=== PATIENT | male | born 1970 | race African-American/Black ===

== ENCOUNTER 2018-01-27 09:49 | Outpatient (RCR) | payer BC ==
[~2018-01-27] VITALS: Ht 190.5 cm; Wt 131.5 kg
== END 2018-02-22 | disposition home or self-care (01) ==
LOC: WCC 09:49
DX: L97.322 Non-pressure chronic ulcer of left ankle with fat layer exposed (principal); T81.31XS Disruption of external operation (surgical) wound, not elsewhere classified, sequela; X58.XXXS Exposure to other specified factors, sequela; Z88.6 Allergy status to analgesic agent
CPT/HCPCS: 11042; 87070; 87181; 87205; G0463; 99204

== ENCOUNTER 2018-02-24 07:50 | Outpatient (RCR) | payer BC ==
[~2018-02-24] VITALS: Ht 190.5 cm; Wt 131.5 kg
[2018-03-13] MEDS ORDERED: Lidocaine 1% MPF 10mg/ml 5ml INJ ONE (12:00)
[2018-03-24] MEDS ORDERED: NKM (11:38)
== END 2018-03-24 | disposition home or self-care (01) ==
LOC: WCC 07:50
DX: L97.322 Non-pressure chronic ulcer of left ankle with fat layer exposed (principal); T81.31XS Disruption of external operation (surgical) wound, not elsewhere classified, sequela; X58.XXXS Exposure to other specified factors, sequela
CPT/HCPCS: 11042; 82962

== ENCOUNTER 2018-03-24 10:46 | Day surgery (SDC) | payer BC, SELFPAY ==
[~2018-03-24] VITALS: Ht 190.5 cm; Wt 133.8 kg
[2018-03-24 11:34] VITALS: BP 136/82
[2018-03-24] MEDS ORDERED: Bacitracin 50000 Units Vial ONE (11:34)
[2018-03-24] MEDS ORDERED: Lidocaine 1% 10mg/ml/Epi 0.005mg/ml 30ml vial INJ ONE (11:34)
[2018-03-24] MEDS ORDERED: NKM (11:38)
--- NOTE | 2018-03-24 12:21 | Pre-Procedure Note/Attestation ---
Pre-Procedure Note/Attestation Complete Prior to Procedure Planned Procedure: left Procedure Narrative: Resection left distal ankle ulcer, surgical preparation of wound bed for placement of stravix and negative pressure wound vac. Attestation I attest that I discussed the nature of the procedure; its benefits; risks and complications; and alternatives (and the risks and benefits of such alternatives ), prior to the procedure, with the patient (or the patient's legal customer account representative). I attest that, if there was a reasonable possibility of needing a blood transfusion, the patient (or the patient's legal customer account representative) was given the [facility] standardized written summary, pursuant to the [place] Blood Safety Act ([place] Health and Safety Code # 1645, as amended). I attest that I re-evaluated the patient just prior to the surgery and that there has been no change in the patient's H&P, except as documented below: KEKE SOMMER Mar 24, 2018 12:21
[2018-03-24] MEDS ORDERED: Lidocaine 1% Plain 30 ml INJ ONE (12:25)
[2018-03-24 14:10] VITALS: BP 129/74
[2018-03-24] MEDS ORDERED: HYDROcodone/Acetamin 7.5/325 tab ORAL ONE (15:00)
--- NOTE | 2018-03-24 16:16 | Brief Operative Note ---
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 ethibond suture in wound base underneath the cicatrical tissue Surgeon: Don Anesthesia: local Specimen: yes Complications: none Condition: stable Fluids: none Estimated Blood Loss: minimal Drains: wound vac Implant(s) used?: Yes - Stravix KEKE SOMMER Mar 24, 2018 16:15
--- NOTE | 2018-03-24 19:30 | Operative Note - Dictated ---
DATE OF OPERATION: 03/24/2018 SURGEON: Sunny Ochoa M.D. PREOPERATIVE DIAGNOSIS: Left distal posterior ankle ulcer. POSTOPERATIVE DIAGNOSIS: Left distal posterior ankle ulcer. OPERATION: 1. Excisional resection of the left distal posterior ankle ulcer bed. 2. Surgical preparation of left distal ankle ulcer bed for placement of a graft. 3. Placement of Stravix, sutured into place. 4. Negative pressure SNAP VAC application. ANESTHESIA: 20 mL of 1% lidocaine with 1:200,000 epinephrine injected. 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 He had a Achilles rupture playing soccer. He underwent repair in July and August 2017 by Orthopedic Surgery. He developed dehiscence of his incision 4-5 weeks later after commencing physical therapy and this has remained open. He had been treated at outpatient wound center, but it was determined that he had this layer of cicatricial tissue that was not allowing skin to heal over and so this needed to be excised down to the tendon with the placement of advanced biologic graft and a negative pressure dressing. The operative plan was devised and agreed upon, and informed consent was obtained and he was scheduled for elective surgery. OPERATIVE PROCEDURE: The patient was seen in the preoperative area and the operative plan was again discussed and agreed upon. Operative markings were made. An IV was placed and he was taken back to the operating room. The patient was placed on the operating table in the prone position and once time-out was performed, his ankle area was injected with 20 mL of 1% lidocaine with 1:200,000 epinephrine. At this point, he had his calf, lower leg, and foot circumferentially prepped and draped in usual sterile fashion. Using combination of a #15 blade, iris scissors, and forceps, the cicatricial tissue was excised. There were several Ethibond sutures present underneath this tissue and these were removed. At this point, attention was turned to get hemostasis. Once this was obtained and the wound bed was explored, there was no more cicatricial tissue and a healthy wound bed at the base. The Stravix was then reconstituted and sutured into place with 4-0 Vicryl sutures. Adaptic was then placed over this followed by negative pressure dressing and the patient's leg was then wrapped with an Derick wrap. There were no leaks in the dressing in negative pressure and the patient was then taken to the recovery room in stable condition. There were no complications. EBL was minimal. The patient tolerated the procedure well. Sunny Ochoa M.D. DR: OSVALDO JOB#: [id number] CC:
== END 2018-03-24 15:30 | disposition home or self-care (01) ==
LOC: SUR 10:46
DX: L97.309 Non-pressure chronic ulcer of unspecified ankle with unspecified severity (principal); M06.9 Rheumatoid arthritis, unspecified; Z87.11 Personal history of peptic ulcer disease; K21.9 Gastro-esophageal reflux disease without esophagitis; I13.2 Hypertensive heart and chronic kidney disease with heart failure and with stage 5 chronic kidney disease, or end stage renal disease; E11.22 Type 2 diabetes mellitus with diabetic chronic kidney disease; N18.6 End stage renal disease; Z99.2 Dependence on renal dialysis

== ENCOUNTER 2018-03-26 08:30 | Outpatient (RCR) | payer BC ==
[~2018-03-26 08:30] MED LIST: NKM
== END 2018-04-24 | disposition home or self-care (01) ==
LOC: WCC 08:30
DX: L97.322 Non-pressure chronic ulcer of left ankle with fat layer exposed (principal); T81.31XS Disruption of external operation (surgical) wound, not elsewhere classified, sequela; X58.XXXS Exposure to other specified factors, sequela; Z88.6 Allergy status to analgesic agent
CPT/HCPCS: 11042; 97607

== ENCOUNTER 2018-04-05 15:15 | Emergency (ER) | payer BC ==
[~2018-04-05] VITALS: Ht 190.5 cm; Wt 131.5 kg
--- NOTE | 2018-04-05 16:03 | Emergency Room Report ---
History of Present Illness General Chief Complaint: General Complaint Source: Patient Present Illness HPI 47 YO Male presents to the ED c/o a malfunction with his wound vacuum. pt. reports he has had wound vac in place for three weeks. Pt. reports it gets changed every 3 days. last change was yesterday (Saturday). Pt reports appt. on Saturday. pt. denies pain, fevers, chills or erythema. Patient states that he was told if he sees red at the top of the suction device that he was told to push the plunger down and that it should resolve however patient states that he has been doing this multiple times and he continues to eventually see the color red. Patient states he does not usually wear orthopedic boot however he is wearing one at the moment because he knew he was going to be doing some walking. Pt reports need for wound vac after complications after having Achilles tendon surgery. Allergies: Coded Allergies: ASPIRIN (Verified Allergy, Unknown, Rash, 03/24/18) Patient History Past Medical History: see triage record Past Surgical History: none Pertinent Family History: none Reviewed Nursing Documentation: PMH: Agreed; PSxH: Agreed Nursing Documentation-PMH Past Medical History: No History, Except For Hx Cardiac Problems: No Hx Hypertension: No Hx Pacemaker: No Hx Asthma: No Hx COPD: No Hx Diabetes: No Hx Cancer: No Hx Gastrointestinal Problems: No - open wound on the left achilles; Hx Dialysis: No History Of Psychiatric Problem: No Hx Neurological Problems: No Hx Cerebrovascular Accident: No Hx Seizures: No Review of Systems All Other Systems: negative except mentioned in HPI Physical Exam Vital Signs Date Time Temp Pulse Resp B/P (MAP) Pulse Ox O2 Delivery O2 Flow Rate FiO2 04/05/18 15:39 98.0 88 16 140/82 95 Room Air 98.1 Sp02 EP Interpretation: reviewed, normal General Appearance: no apparent distress, alert, GCS 15, non-toxic Head: normocephalic, atraumatic ENT: hearing grossly normal, normal voice Neck: full range of motion Respiratory: speaking full sentences Cardiovascular #1: regular rate, rhythm, no edema, normal capillary refill Musculoskeletal: back normal, gait/station normal, normal range of motion, non- tender, other - Pt. had orthoboot and bri wrap applied very tightly. the wound vac does not appear to be draining. Neurologic: alert, oriented x3, responsive, motor strength/tone normal, sensory intact, speech normal, grossly normal Psychiatric: judgement/insight normal Skin: normal color, no rash, warm/dry, well hydrated, other - unable to assess skin beneath wound vac dressing as to not disrupt placement, no surrounding erythema or d/c noted. Lymphatic: no adenopathy Medical Decision Making PA Attestation Dr. bernabe is my supervising Physician whom patient management has been discussed with. Diagnostic Impression: Primary Impression: Malfunction of device Qualified Codes: T85.618A - Breakdown (mechanical) of other specified internal prosthetic devices, implants and grafts, initial encounter Additional Impression: Malfunction of vacuum-assisted closure (VAC) device Qualified Codes: T85.698A - Other mechanical complication of other specified internal prosthetic devices, implants and grafts, initial encounter ER Course 47 YO Male presents to the ED c/o a malfunction with his wound vacuum. pt. reports he has had wound vac in place for three weeks. Pt. reports it gets changed every 3 days. last change was yesterday (Saturday). Pt reports appt. on Saturday. pt. denies pain, fevers, chills or erythema. Patient states that he was told if he sees red at the top of the suction device that he was told to push the plunger down and that it should resolve however patient states that he has been doing this multiple times and he continues to eventually see the color red. Patient states he does not usually wear orthopedic boot however he is wearing one at the moment because he knew he was going to be doing some walking. Pt reports need for wound vac after complications after having Achilles tendon surgery. Ddx considered but are not limited to Vital signs: are WNL, pt. is afebrile H&PE are most consistent with malfunctioning wound vac- not draining. no obvious ST swelling or palpable fluctuance to the posterior left heel. ORDERS: none required at this time, the diagnosis is clinical ED INTERVENTIONS: --Contacted on-call General surgery to determine with this is safe to let pt. wait until Saturday. The consensus was either it can stay in and wait, or be removed and pt. do dressing changes regularly. d/w pt. the options and he choose to leave wound vac in place until a new device can be attached. DISCHARGE: At this time pt. is stable for d/c to home. Will provide printed patient care instructions, and any necessary prescriptions. Care plan and follow up instructions have been discussed with the patient prior to discharge. Last Vital Signs Date Time Temp Pulse Resp B/P (MAP) Pulse Ox O2 Delivery O2 Flow Rate FiO2 04/05/18 15:39 98.0 88 16 140/82 95 Room Air 98.1 Disposition: HOME, SELF-CARE Condition: Stable Physician Consult: Telephone- Dr. Call Patient Instructions: Vacuum-Assisted Closure Therapy Home Guide Additional Instructions: Follow up accordingly with your art specialist / Saturday appt. Take any previously prescribed medications as directed. --Please review list of primary care clinics, if you do not already have a primary care provider Return sooner to ED if new symptoms occur, or current symptoms become worse. - Please note that this Emergency Department Report was dictated using [employer] technology software, occasionally this can lead to erroneous entry secondary to interpretation by the dictation equipment. Jackie Schwartz April 05, 2018 16:03
[2018-04-05 16:04] VITALS: BP 140/82
[2018-04-05 16:42] VITALS: BP 140/82
== END 2018-04-05 16:43 | disposition home or self-care (01) ==
LOC: EMR 16:20
DX: T85.698A Other mechanical complication of other specified internal prosthetic devices, implants and grafts, initial encounter (principal); Y84.8 Other medical procedures as the cause of abnormal reaction of the patient, or of later complication, without mention of misadventure at the time of the procedure; Y92.9 Unspecified place or not applicable
CPT/HCPCS: 99283

== ENCOUNTER 2018-04-28 09:10 | Outpatient (RCR) | payer BC | END 2018-05-24 | disposition home or self-care (01) | LOC: WCC 09:10 | DX: L97.322 Non-pressure chronic ulcer of left ankle with fat layer exposed (principal); T81.31XS Disruption of external operation (surgical) wound, not elsewhere classified, sequela; Z88.6 Allergy status to analgesic agent | CPT/HCPCS: 11042; 97607 ==

== ENCOUNTER 2018-05-26 07:48 | Outpatient (RCR) | payer BC | END 2018-06-24 | disposition home or self-care (01) | LOC: WCC 07:48 | DX: S86.092D Other specified injury of left Achilles tendon, subsequent encounter (principal) | CPT/HCPCS: 11042 ==

== ENCOUNTER 2018-06-30 09:01 | Outpatient (RCR) | payer BC | END 2018-07-25 | disposition home or self-care (01) | LOC: WCC 09:01 | DX: L97.322 Non-pressure chronic ulcer of left ankle with fat layer exposed (principal); T81.31XS Disruption of external operation (surgical) wound, not elsewhere classified, sequela; X58.XXXS Exposure to other specified factors, sequela; Z88.6 Allergy status to analgesic agent | CPT/HCPCS: 11042 ==

== ENCOUNTER 2018-08-11 08:53 | Outpatient (RCR) | payer BC | END 2018-08-24 | disposition home or self-care (01) | LOC: WCC 08:53 | DX: L97.322 Non-pressure chronic ulcer of left ankle with fat layer exposed (principal); T81.31XS Disruption of external operation (surgical) wound, not elsewhere classified, sequela; X58.XXXS Exposure to other specified factors, sequela; Z88.6 Allergy status to analgesic agent | CPT/HCPCS: 11042 ==

== ENCOUNTER 2018-08-25 08:30 | Outpatient (RCR) | payer BC | END 2018-09-24 | disposition home or self-care (01) | LOC: WCC 08:30 | DX: T86.828 Other complications of skin graft (allograft) (autograft) (principal); L97.322 Non-pressure chronic ulcer of left ankle with fat layer exposed; T81.31XS Disruption of external operation (surgical) wound, not elsewhere classified, sequela; Z88.6 Allergy status to analgesic agent; L03.116 Cellulitis of left lower limb | CPT/HCPCS: 11042; 87070; 87181; 87205 ==